=== PATIENT | female | born 1965 | race Two or more races ===

== ENCOUNTER 2018-04-01 07:04 | Outpatient (CLI) | payer OTHER | END 2018-04-01 07:13 | disposition home or self-care (01) | LOC: TOM 07:04 | DX: K62.5 Hemorrhage of anus and rectum (principal); R19.4 Change in bowel habit ==

== ENCOUNTER 2020-12-21 08:35 | Outpatient (CLI) | payer OTHER | END 2020-12-21 08:41 | disposition home or self-care (01) | LOC: TOM 08:35 | DX: K76.0 Fatty (change of) liver, not elsewhere classified (principal); R10.2 Pelvic and perineal pain; I70.8 Atherosclerosis of other arteries; R62.59 Other lack of expected normal physiological development in childhood ==

== ENCOUNTER → 2020-12-27 | Outpatient (CLI) | payer OTHER | END | disposition home or self-care (01) | LOC: TOM 08:39 | DX: K76.0 Fatty (change of) liver, not elsewhere classified (principal); R10.32 Left lower quadrant pain; Z12.11 Encounter for screening for malignant neoplasm of colon ==

== ENCOUNTER 2020-12-31 08:17 | Outpatient (CLI) | payer OTHER | END 2020-12-31 09:55 | disposition home or self-care (01) | LOC: SONOGRAMA 08:17 | PROVIDERS: ATTEND Pathology Anatomic Pathology & Clinical Pathology | DX: E04.2 Nontoxic multinodular goiter (principal); D34 Benign neoplasm of thyroid gland ==